=== PATIENT | female | born 1980 | race Hispanic/Latino ===

== ENCOUNTER 2018-04-11 00:04 | Emergency (ER) | payer OTHER ==
[~2018-04-11] VITALS: Ht 152.4 cm; Wt 72.6 kg
[2018-04-11] MEDS ORDERED: DETROL LA4 MG PO (00:19)
[2018-04-11] MEDS ORDERED: DIPHENHYDRAMINE HCL INJ 50 MG/ML VIAL ONE (00:30)
[2018-04-11] MEDS ORDERED: METHYLPREDNISOLONE SOD SUCC 125 MG/2ML VIAL ONE (00:30)
[2018-04-11] MEDS ORDERED: FAMOTIDINE 20 MG/2 ML VIAL IV STA (00:31)
[2018-04-11] MEDS ORDERED: FAMOTIDINE 20 MG/2 ML VIAL IV ONE (00:31)
[2018-04-11] MEDS ORDERED: SODIUM CHLORIDE 0.9% 1000ML 1,000 ML IV STA (00:31)
[2018-04-11] MEDS ORDERED: METHYLPREDNISOLONE SOD SUCC 125 MG/2ML VIAL IV STA (00:31)
[2018-04-11] MEDS ORDERED: DIPHENHYDRAMINE HCL INJ 50 MG/ML VIAL IV ONE (00:45)
[2018-04-11 01:09] LABS: BASOPHILS % 0.3 % (0.0-1.0); EOSINOPHILS # (AUTO) 0.3 (0.0-0.4); HEMATOCRIT 39.7 % (34.2-44.1); HEMOGLOBIN 13.2 g/dL (12.0-16.0); LYMPHOCYTES # (AUTO) 2.8 (1.0-3.2); LYMPHOCYTES % 31.8 % (18.0-39.1); MEAN CORPUSCULAR HEMOGLOBIN 28.4 pg (28-32); MEAN CORPUSCULAR HGB CONC 33.2 g/dL (31-35); MEAN CORPUSCULAR VOLUME 85.4 fL (81-99); MONOCYTES # (AUTO) 0.7 (0.2-0.8); MONOCYTES % 7.9 % (4.4-11.3); NEUTROPHILS % 56.7 % (38.7-80.0); PLATELET COUNT 250 x10e3/uL (140-360); RED BLOOD COUNT 4.65 x10e6/uL (3.6-5.1); RED CELL DISTRIBUTION WIDTH 13.6 % (11.7-14.4)
[2018-04-11 01:33] LABS: ALANINE AMINOTRANSFERASE 28 IU/L (0-55); ALBUMIN 3.5 g/dL (3.5-5.0); ALBUMIN/GLOBULIN RATIO 0.9 (0.8-2.0); ALKALINE PHOSPHATASE 71 IU/L (40-150); ANION GAP 14.7 mmol/L (8-16); BLOOD UREA NITROGEN 11 mg/dL (7-26); BUN/CREATININE RATIO 14 (6-25); CALCIUM 9.1 mg/dL (8.4-10.2); CARBON DIOXIDE 23 mmol/L (22-29); CHLORIDE 105 mmol/L (98-107); EST GLOMERULAR FILTRATION RATE > 60 ML/MIN (60-); GLUCOSE 88 mg/dL (74-118); POTASSIUM 3.7 mmol/L (3.5-5.1); SODIUM 139 mmol/L (136-145)
--- NOTE | 2018-04-11 02:19 | Diagnostic Imaging Report ---
EXAM: CHEST SINGLE (PORTABLE), AP 1 view INDICATION: Allergic reaction COMPARISON: None FINDINGS: LINES/TUBES: None LUNGS: No consolidations or edema. PLEURA: No effusions or pneumothorax. HEART AND MEDIASTINUM: Normal size and contour. BONES AND SOFT TISSUES: No acute findings. IMPRESSION: No acute thoracic abnormality. Signed by: Dr. Yamilex Faustin M.D. on 04/11/2018 2:15 AM
[2018-04-11 03:43] VITALS: BP 108/79
== END 2018-04-11 03:44 | disposition home or self-care (01) ==
LOC: ER 00:04
DX: T78.3XXA Angioneurotic edema, initial encounter (principal)
CPT/HCPCS: 36415; 71045; 80053; 85025; 96374; 96375; 96376; 99284; J1200; J2930; J7030

== ENCOUNTER 2019-03-11 02:15 | Emergency (ER) | payer OTHER ==
[~2019-03-11] VITALS: Ht 152.4 cm; Wt 72.6 kg
[~2019-03-11 02:15] MED LIST: DETROL LA4 MG PO
--- OUTSIDE RECORDS SUMMARY | 2019-03-11 02:17 | XMS REPORT | Clinical Summary ---
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 Phone Asked, No Pcp PCP Unavailable Allergies No Known Allergies Medications No known medications Active Problems Not on file Encounters Care Team Description Date Type Specialty 05/25/2018 Clinical Corporate Wellness Support after 03/10/2018 Immunizations Name Dates Previously Given Next Due FLUCELVAX QUAD PF (0.5mL 05/25/2018 syringe) Social History Date Tobacco Use Types Packs/Day Years Used Never Smoker Alcohol Use Drinks/Week oz/Week Comments No Sex Assigned at Date Recorded Not on file Industry Job Start Date Occupation Not on file Not on file Not on file Travel End Travel History Travel Start No recent travel history available. Last Filed Vital Signs Not on file Plan of Treatment Health Maintenance Due Date Last Done Comments INFLUENZA VACCINE 03/11/2019 05/25/2018, 06/12/2014 Results Not on fileafter 03/10/2018 Insurance Type Payer Benefit Subscriber ID Effective Phone Address Plan / Dates Group HMO/PPO [id number] THCARE resent CHOICE/CHO ICE + Advance Directives Patient has advance care planning documents on file. For more information, agnes reyna contact: Nikolas Tony [address] [place] [address]
--- OUTSIDE RECORDS SUMMARY | 2019-03-11 02:17 | XMS REPORT | Clinical Summary ---
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 03/14/2019 Active doxycycline (VIBRAMYCIN) Take 1 20 capsule 0 100 MG capsule capsule (100 9 mg total) by mouth 2 (two) times daily for 10 days. 03/14/2019 Active acetaminophen-codeine Take 1-2 15 tablet 0 (TYLENOL #3) 300-30 mg tablets by 9 per tablet mouth every 6 (six) hours as needed for Pain for up to 10 days. Max Daily Amount: 8 tablets 03/11/2019 Active ondansetron (ZOFRAN) 4 MG Take 1 tablet 14 tablet 0 tablet (4 mg total) 9 by mouth 3 (three) times daily as needed for Nausea for up to 7 days ODT please. 03/04/2019 Discontinued polyethylene glycol Take 17 g by 0 (GLYCOLAX) 17 gram packet mouth 2 (two) times daily. Active Problems Not on file Encounters Care Team Description Date Type Specialty Madi Hurtado Jr., MD Lower abdominal pain (Primary Dx); Proctitis; Cyst of right ovary 03/04/2019 Emergency Emergency Medicine Resource, [facility] Preadmit Phone 02/25/2019 Hospital Pre-Admission Testing Encounter Laurence Charles MD 1, [facility] Room Abdominal bloating 01/29/2019 Hospital Ultrasound Encounter Laurence Charles MD Abdominal bloating (Primary Dx) 01/27/2019 Outside Orders Central Scheduling Taco Rogers MD 12/18/2018 Anesthesia Event Laurence Charles MD UPPER ENDOSCOPY,BIOPSY 12/18/2018 Surgery Laurence Charles MD 12/18/2018 Hospital Encounter Resource, [facility] Preadmit Phone 12/17/2018 Hospital Pre-Admission Testing Encounter after 03/10/2018 Social History Date Tobacco Use Types Packs/Day Years Used Never Smoker Smokeless Tobacco: Never Used Alcohol Use Drinks/Week oz/Week Comments Yes occasionally Sex Assigned at Date Recorded Not on file Industry Job Start Date Occupation Not on file Not on file Not on file Travel End Travel History Travel Start No recent travel history available. Last Filed Vital Signs Time Taken Vital Sign Reading 03/04/2019 1:33 PM CDT Blood Pressure 109/79 03/04/2019 1:33 PM CDT Pulse 73 03/04/2019 1:33 PM CDT Temperature 37.1 C (98.8 F) 03/04/2019 1:33 PM CDT Respiratory Rate 18 03/04/2019 1:28 PM CDT Oxygen Saturation 99% - Inhaled Oxygen - Concentration 03/04/2019 4:53 AM CDT Weight 75.3 kg (166 lb) 03/04/2019 4:53 AM CDT Height 157.5 cm (5' 2") 03/04/2019 4:53 AM CDT Body Mass Index 30.36 Plan of Treatment Not on file Procedures Comments Procedure Name Priority Date/Time Associated Diagnosis US PELVIS WITH ENDOVAG STAT 03/04/2019 WITH DOPPLER 10:[address] ABDOMEN/PELVIS WITH IV STAT 03/04/2019 CONTRAST 6:39 AM CDT POCT , URINE STAT 03/04/2019 5:20 AM CDT CBC W/PLT COUNT & AUTO STAT 03/04/2019 DIFFERENTIAL 5:13 AM CDT LIPASE STAT 03/04/2019 5:13 AM CDT HEPATIC FUNCTION PANEL STAT 03/04/2019 5:13 AM CDT URINALYSIS WITH STAT 03/04/2019 MICROSCOPIC IF INDICATED 5:13 AM CDT CBC W/PLT COUNT & AUTO STAT 03/04/2019 DIFFERENTIAL 5:13 AM CDT BASIC METABOLIC PANEL (7) STAT 03/04/2019 5:13 AM CDT US ABDOMEN COMPLETE Routine 01/29/2019 Abdominal bloating 9:00 AM CDT REPORT OF PROCEDURE - 12/18/2018 ENDOSCOPY URL 9:04 AM CDT TISSUE EXAM AP Routine 12/18/2018 8:56 AM CDT UPPER ENDOSCOPY,BIOPSY 12/18/2018 Gastritis, presence of 8:30 AM CDT bleeding unspecified, unspecified chronicity, unspecified gastritis type POCT , URINE Routine 12/18/2018 8:29 AM CDT after 03/10/2018 Results * US pelvis with endovag with doppler (03/04/2019 10:24 AM CDT) Specimen Narrative Performed At FINAL REPORT [employer] Pelvic ultrasound History: pelvic pain Comparison: CT abdomen and pelvis of same date Findings: Sonographic images obtained via a transabdominal and transvaginal approach.No apparent uterine mass lesion or enlargement.Uterus measures 10.1 x 5.1 x 6.8cm. Several incidental nabothian cysts are noted. Normal appearance of endometrial stripe.Endometrial stripe measures 6.9mm.No free fluid is seen. A 4.1 cm well-circumscribed simple appearing right ovarian cyst is noted. Expected arterial and venous waveforms are seen within the right ovary. Left ovary is not identified on this examination. However, the left ovary appears normal on the comparison CT study.No hydrosalpinx.Right ovary measures 4.4 x 3.5 x 4.1cm. Impression: 1. No definite sonographic findings of ovarian torsion. 2. 4.1 cm well-circumscribed right ovarian cyst, requiring no further imaging follow-up. Signed: Natalee Velez MD Report Verified Date/Time:03/04/2019 13:00:47 Reading Location: [facility] Diagnostic Imaging Reading Room - [place] [address] [id number] Procedure Note Interface, External Ris In - 03/04/2019 1:02 PM CDT FINAL REPORT Pelvic ultrasound History: pelvic pain Comparison: CT abdomen and pelvis of same date Findings: Sonographic images obtained via a transabdominal and transvaginal approach. No apparent uterine mass lesion or enlargement. Uterus measures 10.1 x 5.1 x 6.8cm. Several incidental nabothian cysts are noted. Normal appearance of endometrial stripe. Endometrial stripe measures 6.9mm. No free fluid is seen. A 4.1 cm well-circumscribed simple appearing right ovarian cyst is noted. Expected arterial and venous waveforms are seen within the right ovary. Left ovary is not identified on this examination. However, the left ovary appears normal on the comparison CT study. No hydrosalpinx. Right ovary measures 4.4 x 3.5 x 4.1cm. Impression: 1. No definite sonographic findings of ovarian torsion. 2. 4.1 cm well-circumscribed right ovarian cyst, requiring no further imaging follow-up. Signed: Natalee Velez MD Report Verified Date/Time: 03/04/2019 13:00:47 Reading Location: [facility] Diagnostic Imaging Reading Room - [place] [id number] Performing Organization Address City/State/Zipcode Phone Number [facility] * CT abdomen pelvis with IV contrast (03/04/2019 6:39 AM CDT) Specimen Narrative Performed At FINAL REPORT [employer] EXAM: CT of the abdomen and pelvis, with contrast CLINICAL HISTORY: Abdominal pain. TECHNIQUE: CT of the abdomen and pelvis was performed with intravenous contrast administration.This exam was performed according to our departmental dose optimization program which includes automated exposure control, adjustment of the mA and/or kV according to patient's size and/or use of iterative reconstructive technique. COMPARISON:None FINDINGS: LOWER CHEST: Mild bibasilar dependent atelectasis. LIVER: Diffuse hepatic steatosis. BILE DUCTS: Within normal limits. GALL BLADDER: Tiny punctate mural calcifications and/or intraluminal gallstones. No wall thickening or pericholecystic fluid. PANCREAS: Within normal limits. SPLEEN: Multiple small hypodensities of varying sizes. ADRENALS: Within normal limits. KIDNEYS/URETERS: Within normal limits. URINARY BLADDER: Within normal limits. REPRODUCTIVE ORGANS: Enlarged right ovary containing a 4.5 x 4.1 x 4.0 cyst measuring simple fluid attenuation. Unremarkable uterus and left adnexa. BOWEL/MESENTERY: Diffuse mural thickening of the rectum for which a proctitis (infectious/inflammatory) cannot be excluded. No bowel obstruction. Normal appendix. PERITONEUM/RETROPERITONEUM: No free air, free fluid or fluid collection. VESSELS: Within normal limits. LYMPH NODES: No abdominal or pelvic lymphadenopathy. SOFT TISSUES: Small fat-containing umbilical hernia. BONES: Within normal limits. IMPRESSION: Enlarged right ovary containing a 4.5 cm cyst. Correlate clinically for ovarian torsion. A pelvic ultrasound may be performed for further evaluation as clinically warranted. Diffuse mural thickening of the rectum for which a proctitis (infectious/inflammatory) cannot be excluded. No bowel obstruction. Tiny punctate mural calcifications and/or intraluminal gallstones. No CT evidence of acute cholecystitis. Multiple hypodense splenic lesions of varying sizes of uncertain etiology or significance. Multiple cysts are a diagnostic consideration however a nonemergent MRI is recommended for further characterization. Hepatic steatosis. Signed: Radha Michele MD Report Verified Date/Time:03/04/2019 07:22:15 Procedure Note Interface, External Ris In - 03/04/2019 7:24 AM CDT FINAL REPORT EXAM: CT of the abdomen and pelvis, with contrast CLINICAL HISTORY: Abdominal pain. TECHNIQUE: CT of the abdomen and pelvis was performed with intravenous contrast administration. This exam was performed according to our departmental dose optimization program which includes automated exposure control, adjustment of the mA and/or kV according to patient's size and/or use of iterative reconstructive technique. COMPARISON: None FINDINGS: LOWER CHEST: Mild bibasilar dependent atelectasis. LIVER: Diffuse hepatic steatosis. BILE DUCTS: Within normal limits. GALL BLADDER: Tiny punctate mural calcifications and/or intraluminal gallstones. No wall thickening or pericholecystic fluid. PANCREAS: Within normal limits. SPLEEN: Multiple small hypodensities of varying sizes. ADRENALS: Within normal limits. KIDNEYS/URETERS: Within normal limits. URINARY BLADDER: Within normal limits. REPRODUCTIVE ORGANS: Enlarged right ovary containing a 4.5 x 4.1 x 4.0 cyst measuring simple fluid attenuation. Unremarkable uterus and left adnexa. BOWEL/MESENTERY: Diffuse mural thickening of the rectum for which a proctitis (infectious/inflammatory) cannot be excluded. No bowel obstruction. Normal appendix. PERITONEUM/RETROPERITONEUM: No free air, free fluid or fluid collection. VESSELS: Within normal limits. LYMPH NODES: No abdominal or pelvic lymphadenopathy. SOFT TISSUES: Small fat-containing umbilical hernia. BONES: Within normal limits. IMPRESSION: Enlarged right ovary containing a 4.5 cm cyst. Correlate clinically for ovarian torsion. A pelvic ultrasound may be performed for further evaluation as clinically warranted. Diffuse mural thickening of the rectum for which a proctitis (infectious/inflammatory) cannot be excluded. No bowel obstruction. Tiny punctate mural calcifications and/or intraluminal gallstones. No CT evidence of acute cholecystitis. Multiple hypodense splenic lesions of varying sizes of uncertain etiology or significance. Multiple cysts are a diagnostic consideration however a nonemergent MRI is recommended for further characterization. Hepatic steatosis. Signed: Radha Michele MD Report Verified Date/Time: 03/04/2019 07:22:15 Performing Organization Address City/State/Zipcode Phone Number [facility] * POCT , urine (03/04/2019 5:20 AM CDT) Only the most recent of 2 results within the time period is included. Test Urine, POC Negative Control line present?, Yes POC Background clear?, POC Yes UPT Cassette Lot #, POC [id number] UPT Cassette Expiration 04/10/2020 Date, POC Specimen Urine * Urinalysis with Microscopic If Indicated (03/04/2019 5:13 AM CDT) Color, UA Colorless [facility] Clarity, UA Clear [facility] Specific [place], UA 1.002 1.001 - 1.035 [facility] pH, UA 5.5 5.0 - 8.0 [facility] Protein, UA Negative Negative [facility] Glucose, UA Negative Negative [facility] Ketones, UA Negative Negative [facility] Bilirubin, UA Negative Negative [facility] Blood, UA Negative Negative [facility] Nitrite, UA Negative Negative [facility] Leukocytes, UA Negative Negative [facility] Urobilinogen, UA 0.2 0.2 - 1.0 mg/dL [facility] Specimen Source [facility] Specimen Urine Performing Organization Address City/State/Zipcode Phone Number [facility] [address] [place] [address] MEDICAL CENTER * CBC with platelet count + automated diff (03/04/2019 5:13 AM CDT) WBC 10.0 3.5 - 10.5 K/L [facility] RBC 4.30 3.93 - 5.22 M/L [facility] Hemoglobin 11.9 11.2 - 15.7 GM/DL [facility] Hematocrit 37.2 34.1 - 44.9 % [facility] MCV 86.5 79.4 - 94.[address] [facility] MCH 27.7 25.6 - 32.[address] [facility] MCHC 32.0 (L) 32.2 - 35.5 GM/DL [facility] RDW 13.5 11.7 - 14.4 % [facility] Platelets 242 150 - 450 K/CU MM [facility] MPV 10.8 9.4 - 12.[address] [facility] nRBC 0 0 - 0 /[address] [facility] % Neutros 58 % [facility] % Lymphs 31 % [facility] % Monos 8 % [facility] % Eos 2 % [facility] % Baso 0 % [facility] # Neutros 5.78 1.56 - 6.13 K/L [facility] # Lymphs 3.13 1.18 - 3.74 K/L [facility] # Monos 0.78 (H) 0.24 - 0.36 K/L [facility] # Eos 0.21 0.04 - 0.36 K/L [facility] # Baso 0.03 0.01 - 0.08 K/L [facility] Immature 0 0 - 1 % [facility] Granulocytes-[facility] Specimen Blood Performing Organization Address City/State/Zipcode Phone Number [address] * Lipase (03/04/2019 5:13 AM CDT) Lipase 40 8 - 78 U/L [facility] Specimen Blood Performing Organization Address City/[facility]/Zipcode Phone Number [address] * Hepatic function panel (03/04/2019 5:13 AM CDT) Protein, Total 7.4 6.0 - 8.3 gm/dL [facility] Albumin 4.0 3.5 - 5.0 g/dL [facility] Total Bilirubin 0.3 0.2 - 1.2 mg/dL [facility] Bilirubin, Direct 0.1 0.1 - 0.5 mg/dL [facility] Alkaline Phosphatase 73 40 - 150 U/L [facility] AST 24 5 - 34 U/L [facility] ALT 27 6 - 55 U/L [facility] Specimen Blood Performing Organization Address City/State/Zipcode Phone Number [facility] [address] [place], [place] [id number] [facility] * Basic Metabolic Panel (03/04/2019 5:13 AM CDT) Sodium 138 136 - 145 meq/L [facility] Potassium 3.7 3.5 - 5.1 meq/L [facility] Chloride 108 (H) 98 - 107 meq/L [facility] CO2 24 22 - 29 meq/L [facility] BUN 8 7 - 21 mg/dL [facility] Creatinine 0.70 0.57 - 1.25 mg/dL [facility] Glucose 91 70 - 105 mg/dL [facility] Calcium 9.1 8.4 - 10.2 mg/dL [facility] EGFR 94Comment: ESTIMATED GFR IS mL/min/1.73 sq m [facility] NOT ACCURATE CREATININE [facility] CLEARANCE IN PREDICTING GLOMERULAR FILTRATION RATE. ESTIMATED GFR IS NOT APPLICABLE FOR DIALYSIS PATIENTS. Specimen Blood Performing Organization Address City/[facility]/Zipcode Phone Number [facility] [address] [place], [place] [phone] [facility] * US Abdomen Complete (01/29/2019 9:00 AM CDT) Specimen Narrative Performed At FINAL REPORT [employer] EXAM: Complete Abdominal Ultrasound INDICATION:abdominal bloating COMPARISON: None. TECHNIQUE: Transverse and longitudinal images of the upper abdomen were obtained. FINDINGS: Liver: Size: 14.7 cm in the right midclavicular line, normal Appearance: Increased echogenicity, smooth contour Mass: No focal masses Spleen: Size: 12.1 cm in length, normal Echogenicity: Normal Mass: No solid masses. Simple cyst. Gallbladder: Stones/Sludge: Mobile gallstone Wall: 0.3 cm Appearance: No pericholecystic fluid or hydrops. Sonographic Contreras's Sign: Negative Bile Ducts: Intrahepatic Ducts: No dilatation Extrahepatic Ducts: Common bile duct measures 0.5 cm, no dilatation Pancreas: Visualized portions of the pancreatic head, neck and proximal body are normal. Right Kidney: Size:11.4 cm Echogenicity:Normal Parenchymal thickness: Normal Collecting System:No hydronephrosis Stone:None Cyst/Mass: None Left Kidney: Size:10.6 cm Echogenicity:Normal Parenchymal thickness: Normal Collecting System:No hydronephrosis Stone:None Cyst/Mass: None Vessels: Aorta: Visualized portions are normal Inferior Vena Cava: Visualized portions are normal Main Portal Vein: 1.1 cm, normal size with hepatopetal flow. Free Fluid: No ascites or pleural effusion IMPRESSION: Cholelithiasis without cholecystitis. Increased hepatic echogenicity can be seen in hepatic steatosis or other chronic inflammatory condition. Signed: Dereje Retana MD Report Verified Date/Time:01/29/2019 09:42:56 Reading Location: [facility] Reading Room [address] [place] [address] Procedure Note Interface, External Ris In - 01/29/2019 9:45 AM CDT FINAL REPORT EXAM: Complete Abdominal Ultrasound INDICATION: abdominal bloating COMPARISON: None. TECHNIQUE: Transverse and longitudinal images of the upper abdomen were obtained. FINDINGS: Liver: Size: 14.7 cm in the right midclavicular line, normal Appearance: Increased echogenicity, smooth contour Mass: No focal masses Spleen: Size: 12.1 cm in length, normal Echogenicity: Normal Mass: No solid masses. Simple cyst. Gallbladder: Stones/Sludge: Mobile gallstone Wall: 0.3 cm Appearance: No pericholecystic fluid or hydrops. Sonographic Contreras's Sign: Negative Bile Ducts: Intrahepatic Ducts: No dilatation Extrahepatic Ducts: Common bile duct measures 0.5 cm, no dilatation Pancreas: Visualized portions of the pancreatic head, neck and proximal body are normal. Right Kidney: Size: 11.4 cm Echogenicity: Normal Parenchymal thickness: Normal Collecting System: No hydronephrosis Stone: None Cyst/Mass: None Left Kidney: Size: 10.6 cm Echogenicity: Normal Parenchymal thickness: Normal Collecting System: No hydronephrosis Stone: None Cyst/Mass: None Vessels: Aorta: Visualized portions are normal Inferior Vena Cava: Visualized portions are normal Main Portal Vein: 1.1 cm, normal size with hepatopetal flow. Free Fluid: No ascites or pleural effusion IMPRESSION: Cholelithiasis without cholecystitis. Increased hepatic echogenicity can be seen in hepatic steatosis or other chronic inflammatory condition. Signed: Dereje Retana MD Report Verified Date/Time: 01/29/2019 09:42:56 Reading Location: [facility] Reading Room [address] [place] [address] Performing Organization Address City/State/Zipcode Phone Number [facility] * REPORT OF PROCEDURE - ENDOSCOPY URL (12/18/2018 9:04 AM CDT) Narrative Performed At * Tissue Exam (12/18/2018 8:56 AM CDT) Case Report Surgical Pathology [facility] Report [facility] Case: [id number] Authorizing Provider:Laurence Charles MDCollected: 12/18/2018 0856 Ordering Location: [facility] Received: 12/18/2018 1102 SERVICES Pathologist: Lolis Rivers MD Specimen:Stomach, bx r/o H Pyroi DIAGNOSIS STOMACH, BIOPSY: [facility] - CHRONIC INACTIVE [facility] GASTRITIS LC/pl Signing Pathologist Direct Phone Line: [phone] COMMENT The endoscopy report is [facility] reviewed in conjunction with [facility] the case. CPT Code(s) 14380 [facility] [address] [facility] GROSS DESCRIPTION The specimen is received in a [facility] single part labeled with the [facility] patient's name, date of and accession which match the information provided on the requisition slip. Part A: Received in formalin in a container labeled "stomach biopsy, rule out H. Pylori" are three pieces of riojas-pink tissue measuring 0.4 x 0.3 x 0.2 cm, 0.2 x 0.2 x 0.2 cm, 0.2 x 0.2 x 0.2 cm. They are submitted entirely in cassette A1 following filtration. EC/pl MICROSCOPIC DESCRIPTION Sections of the stomach biopsy [facility] show gastric antral and [facility] oxyntic type mucosa. There is increased chronic inflammation in the lamina propria with lymphocytes, plasma cells and few lymphoid aggregates. Mild vascular congestion is present. There is no significant acute inflammation. There is no intestinal metaplasia, dysplasia or malignancy. Warthin-starry stains for Helicobacter pylori is negative. SPECIAL STUDIES Warthin-starry stain - [facility] negative for Helicobacter [facility] pylori. The interpretation of this case included the use of immunohistochemistry or special stains. Control Slides Examined: In-house known positive controls were evaluated along with the test tissue. These control slides run alongside of the patients sample show appropriate staining. Internal positive and negative controls when available are evaluated Immunohistochemistry technical testing was performed at [facility], Pathology Laboratory where it was developed and its performance characteristics were determined. It has not been cleared or approved by the U.S. Food and Drug Administration. The FDA has determined that such clearance or approval is not necessary. The test is used for clinical purposes. It should not be regarded as investigational or for research. This laboratory is certified under the Clinical Laboratory Improvement Amendments of 1988 (CLIA-88) as qualified to perform high complexity clinical laboratory testing. Specimen Tissue Performing Organization Address City/State/Zipcode Phone Number [facility] [address] [place] [address] [facility] after 03/10/2018 Insurance Payer Benefit Subscriber ID Type Phone Address Plan / Group [facility] HMO/POS CARE POS SELECT CHOICE
--- OUTSIDE RECORDS SUMMARY | 2019-03-11 02:17 | XMS REPORT ---
Author Author [facility] Address Unknown Phone Unavailable Care Team Providers Care Apartment Maintenance Supervisor Name Role Phone FEROZHERBERTH Unavailable Unavailable GUNNAR CHARLESGH LLUVIA Unavailable Unavailable Miguel STEPHENSONIRINA Unavailable Unavailable Problems This patient has no known problems. Allergies, Adverse Reactions, Alerts This patient has no known allergies or adverse reactions. Medications This patient has no known medications. Results Test Description Test Time Test Comments Text Results Atomic Results Result Comments U/S, PELVIS, WITH ENDOVAG AND DOPPLER 2019-03-04 13:00:00 Reason for exam:->ABDOMINAL PAIN FINAL REPORT Pelvic ultrasound History: pelvic pain Comparison: CT abdomen and pelvis of same date Findings: Sonographic images obtained via a transabdominal and transvaginal approach. No apparent uterine mass lesion or enlargement. Uterus measures 10.1 x 5.1 x 6.8cm. Several incidental nabothian cysts are noted. Normal appearance of endometrial stripe. Endometrial stripe measures 6.9mm. No free fluid is seen. A 4.1 cm well- circumscribed simple appearing right ovarian cyst is noted. Expected arterial and venous waveforms are seen within the right ovary. Left ovary is not i dentified on this examination. However, the left ovary appears normal on the comparison CT study. No hydrosalpinx. Right ovary measures 4.4 x 3.5 x 4.1cm. Impression: 1. No definite sonographic findings of ovarian torsion.2. 4.1 cm well-circumscribed right ovarian cyst, requiring no further imaging follow-up. Signed: Junior Velez MDReport Verified Date/Time: 03/04/2019 13:00:47 Reading Location: [facility] Diagnostic Imaging Reading Room - [place] [id number] , ABDOMEN 2019-03-04 07:22:00 Reason for exam:->ABDOMINAL PAINIs the patient ?->NoWhat is the patient's sedation requirement?->No Sedation FINAL REPORT EXAM: CT of the abdomen and pelvis, with contrast CLINICAL HISTORY: Abdominal pain. TECHNIQUE: CT of the abdomen and pelvis was performed with intravenous contrast administration. This exam was performed according to our departmental dose optimization program which includes automated exposure control, adjustment of the mA and/or kV according to patient's size and /or use of iterative reconstructive technique. COMPARISON: None FINDINGS: LOWER CHEST: Mild bibasilar dependent atelectasis.LIVER: Diffuse hepatic steatosis.BILE DUCTS: Within normal limits.GALL BLADDER: Tiny punctate mural calcifications and/or intraluminal gallstones. No wall thickening or pericholecystic fluid.PANCREAS: Within normal limits.SPLEEN: Multiple small hypodensities of varying sizes.ADRENALS: Within normal limits.KIDNEYS/URETERS: Within normal limits. URINARY BLADDER: Within normal limits.REPRODUCTIVE ORGANS: Enlarged right ovary containing a 4.5 x 4.1 x 4.0 cyst measuring simple fluid attenuation. Unremarkable uterus and left adnexa. BOWEL/MESENTERY: Diffuse mural thickening of the rectum for which a proctitis (infectious/inflammatory) cannot be excluded. No bowel obstruction.Normal appendix.PERITONEUM/RETROPERITONEUM: No free air, free fluid or fluid collection. VESSELS: Within normal limits. LYMPH NODES: No abdominal or pelvic lymphadenopathy.SOFT TISSUES: Small fat-containing umbilical hernia.BONES: Within normal limits. IMPRESSION: Enlarged right ovary [...] recommended for further characterization. Hepatic steatosis. Signed: Ana Michele MDRort Verified Date/Time: 03/04/2019 07:22:15 TIC FUNCTION PANEL 2019-03-04 06:56:00 TOTAL PROTEIN (BEAKER) (test rmam=631) 7.4 gm/dL 6.0-8.3 ALBUMIN (BEAKER) (test kybi=5261) 4.0 g/dL 3.5-5.0 BILIRUBIN TOTAL (BEAKER) (test miiw=593) 0.3 mg/dL 0.2-1.2 BILIRUBIN DIRECT (BEAKER) (test vfyi=397) 0.1 mg/dL 0.1-0.5 ALKALINE PHOSPHATASE (BEAKER) (test cssg=403) 73 U/L 40-150 AST (SGOT) (BEAKER) (test pzct=744) 24 U/L 5-34 ALT (SGPT) (BEAKER) (test pqyg=520) 27 U/L 6-55 [id number] 06:56:00* Test Item Value Reference Range Comments LIPASE (BEAKER) (test bhic=592) 40 U/L 8-78 URINALYSIS WITH MICROSCOPIC IF [id number] 06:21:00* Test Item Value Reference Range Comments COLOR (BEAKER) (test kcaa=726) Colorless CLARITY (BEAKER) (test aelo=390) Clear SPECIFIC GRAVITY UA (BEAKER) (test advo=801) 1.002 1.001-1.035 PH UA (BEAKER) (test bqvb=743) 5.5 5.0-8.0 PROTEIN UA (BEAKER) (test avrt=673) Negative Negative GLUCOSE UA (BEAKER) (test clrm=186) Negative Negative KETONES UA (BEAKER) (test mqhh=225) Negative Negative BILIRUBIN UA (BEAKER) (test sfjn=761) Negative Negative BLOOD UA (BEAKER) (test qsiz=730) Negative Negative NITRITE UA (BEAKER) (test yqdo=768) Negative Negative LEUKOCYTE ESTERASE UA (BEAKER) (test qwzj=030) Negative Negative UROBILINOGEN UA (BEAKER) (test ybkp=286) 0.2 mg/dL 0.2-1.0 SOURCE(BEAKER) (test rxai=2477) BASIC METABOLIC [id number] 06:11:00* Test Item Value Reference Range Comments SODIUM (BEAKER) (test ymqh=886) 138 meq/L 136-145 POTASSIUM (BEAKER) (test xpki=821) 3.7 meq/L 3.5-5.1 CHLORIDE (BEAKER) (test nbbg=119) 108 meq/L 98-107 CO2 (BEAKER) (test qjpe=988) 24 meq/L 22-29 BLOOD UREA NITROGEN (BEAKER) (test gnue=336) 8 mg/dL 7-21 CREATININE (BEAKER) (test xqyi=859) 0.70 mg/dL 0.57-1.25 GLUCOSE RANDOM (BEAKER) (test rbul=909) 91 mg/dL 70-105 CALCIUM (BEAKER) (test yzbt=241) 9.1 mg/dL 8.4-10.2 EGFR (BEAKER) (test irms=2030) 94 mL/min/1.73 sq m ESTIMATED GFR IS NOT ACCURATE CREATININE CLEARANCE IN PREDICTING GLOMERULAR FILTRATION RATE. ESTIMATED GFR IS NOT APPLICABLE FOR DIALYSIS PATIENTS. CBC W/PLT COUNT & AUTO [id number] 05:32:00* Test Item Value Reference Range Comments WHITE BLOOD CELL COUNT (BEAKER) (test adcp=175) 10.0 K/ L 3.5-10.5 RED BLOOD CELL COUNT (BEAKER) (test zfjo=138) 4.30 M/ L 3.93-5.22 HEMOGLOBIN (BEAKER) (test xpgj=097) 11.9 GM/DL 11.2-15.7 HEMATOCRIT (BEAKER) (test gpyy=210) 37.2 % 34.1-44.9 MEAN CORPUSCULAR VOLUME (BEAKER) (test lwxe=945) 86.5 fL 79.4-94.8 MEAN CORPUSCULAR HEMOGLOBIN (BEAKER) (test wqoi=307) 27.7 pg 25.6-32.2 MEAN CORPUSCULAR HEMOGLOBIN CONC (BEAKER) (test wywk=220) 32.0 GM/DL 32.2-35.5 RED CELL DISTRIBUTION WIDTH (BEAKER) (test lezz=730) 13.5 % 11.7-14.4 PLATELET COUNT (BEAKER) (test zgbz=157) 242 K/CU MM 150-450 MEAN PLATELET VOLUME (BEAKER) (test sqxw=882) 10.8 fL 9.4-12.3 NUCLEATED RED BLOOD CELLS (BEAKER) (test lgek=695) 0 /100 WBC 0-0 NEUTROPHILS RELATIVE PERCENT (BEAKER) (test eoep=488) 58 % LYMPHOCYTES RELATIVE PERCENT (BEAKER) (test hzpy=211) 31 % MONOCYTES RELATIVE PERCENT (BEAKER) (test qeeb=460) 8 % EOSINOPHILS RELATIVE PERCENT (BEAKER) (test tkqx=799) 2 % BASOPHILS RELATIVE PERCENT (BEAKER) (test tjqs=089) 0 % NEUTROPHILS ABSOLUTE COUNT (BEAKER) (test kana=638) 5.78 K/ L 1.56-6.13 LYMPHOCYTES ABSOLUTE COUNT (BEAKER) (test fyya=467) 3.13 K/ L 1.18-3.74 MONOCYTES ABSOLUTE COUNT (BEAKER) (test gxwc=482) 0.78 K/ L 0.24-0.36 EOSINOPHILS ABSOLUTE COUNT (BEAKER) (test ltct=327) 0.21 K/ L 0.04-0.36 BASOPHILS ABSOLUTE COUNT (BEAKER) (test xwrk=774) 0.03 K/ L 0.01-0.08 IMMATURE GRANULOCYTES-RELATIVE PERCENT (BEAKER) (test ykik=1384) 0 % 0-1 US, ABDOMINAL, [id number] 09:42:00Reason for Exam:->abdominal bloating FINAL REPORT EXAM: Complete Abdominal UltrasoundINDICATIO N: abdominal bloatingCOMPARISON: None. TECHNIQUE: Transverse and longitud inal images of the upper abdomen were obtained. FINDINGS: Liver: Size: 14.7 cm in the right midclavicular line, normal Appearance: Increased echoge nicity, smooth contour Mass: No focal masses Spleen: Size: 12.1 cm in l ength, normal Echogenicity: Normal Mass: No solid masses. Simple cyst. Gallbladder: Stones/Sludge: Mobile gallstone Wall: 0.3 cm Appearanc e: No pericholecystic fluid or hydrops. Sonographic Contreras's Sign: Negativ e Bile Ducts: Intrahepatic Ducts: No dilatation Extrahepatic Ducts: Comm on bile duct measures 0.5 cm, no dilatation Pancreas: Visualized portions of the pancreatic head, neck and proximal body are normal. Right Kidney: Size: 11.4 cm Echogenicity: Normal Parenchymal thickness: Normal Colle cting System: No hydronephrosis Stone: None Cyst/Mass: None Left Kidney: Size: 10.6 cm Echogenicity: Normal Parenchymal th ickness: Normal Collecting System: No hydronephrosis Stone: None Cyst/Mass: None Vessels: Aorta: Visualized portions are normal Inferior Vena Cava: Visualized portions are normal Main Portal Vein: 1.1 cm, normal s ize with hepatopetal flow. Free Fluid: No ascites or pleural effusion IMPRES JURGEN:Cholelithiasis without cholecystitis. Increased hepatic echogenicity can be seen in hepatic steatosis or other chronic inflammatory condition. Signed: Dereje Carpio MDReport Verified Date/Time: 01/29/2019 09:42:56 Reading Location: [facility] Reading Room [address] [place] [address] UE [id number] 14:20:00Surgical Pathology Report Case: [id number] Authorizing Provider: Lluvia Charles MD Collected: 12/18/2018 0856 Ordering Location: [facility] Received: 12/18/2018 1102 SERVICES Pathologist: Lolis Rivers MD Specimen: Stomach, bx r/o H Pyroi STOMACH, BIOPSY: - CHRONIC INACTIVE GASTRITISLC/pl Signing Pathologist Direct Phone Line: [phone] signed by Lolis Rivers MD on 12/21/2018 at 2:20 PMThe endoscopy report is reviewed in co njunction with the case. [id number] specimen is received in a single part lab eled with the patient's name, date of and accession which match the inform ation provided on the requisition slip. Part A: Received in formalin in a contai ner labeled "stomach biopsy, rule out H. Pylori" are three pieces of riojas-pink ti ssue measuring 0.4 x 0.3 x 0.2 cm, 0.2 x 0.2 x 0.2 cm, 0.2 x 0.2 x 0.2 cm. They are submitted entirely in cassette A1 following filtration. EC/pl Sections of t he stomach biopsy show gastric antral and oxyntic type mucosa. There is increase d chronic inflammation in the lamina propria with lymphocytes, plasma cells and few lymphoid aggregates. Mild vascular congestion is present. There is no signif icant acute inflammation. There is no intestinal metaplasia, dysplasia or malign gabriel. Warthin-starry stains for Helicobacter pylori is negative. Warthin-starry stain - negative for Helicobacter pylori. The interpretation of this case includ ed the use of immunohistochemistry or special stains.Control Slides Examined: I n-house known positive controls were evaluated along with the test tissue. Thes e control slides run alongside of the patients sample show appropriate staining. Internal positive and negative controls when available are evaluated Immunohist ochemistry technical testing was performed at [facility], Pathology Laboratory where it was developed and its performance characteristics were determined. It has not been cleared or approved by the U.S. Food and Drug A dministration. The FDA has determined that such clearance or approval is not nec essary. The test is used for clinical purposes. It should not be regarded as inv estigational or for research. This laboratory is certified under the Clinical La boratory Improvement Amendments of 1988 (CLIA-88) as qualified to perform high c omplexity clinical laboratory testing.CHEST SINGLE (PORTABLE)2018-04-11 02:15:00 [place] [address] Patient Name: SAVANNAH SHAH MR #: [id number] : 1980 Age/Sex: 37/F Req #: [id number] Adm Physician: Ordered by: LYNNE STEPHENSON MD Report #: [id number] Location: ER Room/Bed: Procedure: [id number] DX/CHEST SINGLE (PORTABLE) Ex am Date: 04/11/18 Exam Time: 0135 REPORT STATUS : Signed EXAM: CHEST SINGLE (PORTABLE), AP 1 view INDICATION: Allergic reac tion COMPARISON: None FINDINGS: LINES/TUBES: None LUNGS: No consol idations or edema. PLEURA: No effusions or pneumothorax. HEART AND ME DIASTINUM: Normal size and contour. BONES AND SOFT TISSUES: No acute findin gs. IMPRESSION: No acute thoracic abnormality. Signed by: Dr. Edgard Lincoln M.D. on 04/11/2018 2:15 AM Dictated By: EDGARD LINCOLN MD 4 Transcribed By: LOR on 04/11/18214 COPY TO: LYNNE STEPHENSON MD
[2019-03-11] MEDS ORDERED: SODIUM CHLORIDE 0.9% 1000ML 1,000 ML IV STA (02:28)
[2019-03-11] MEDS ORDERED: FAMOTIDINE 20 MG/2 ML VIAL IV ONE (02:30)
[2019-03-11] MEDS ORDERED: DONNATAL/LIDOCAINE/MAALOX 30 ML SUSP PO ONE (02:30)
[2019-03-11] MEDS ORDERED: PROMETHAZINE 25MG/ NS 50ML (IV) IV ONE (02:30)
[2019-03-11] MEDS ORDERED: MAGNESIUM/ALUMINUM/SIMETHICONE 30 ML UDC ONE (02:42)
[2019-03-11] MEDS ORDERED: BELLADONNA ALK/PHENOBARBITAL 5 ML UDC ONE (02:42)
[2019-03-11] MEDS ORDERED: LIDOCAINE VISC 2% SOLN 15 ML UDC ONE (02:42)
--- NOTE | 2019-03-11 02:55 | NUR ---
PT TO WINDOW, REQUEST TO DISCONTINUE TREATMENT AND GO HOME. PT STATES THAT "I FEEL LIKE THIS IS THE SAME PAIN CHERYL BEEN HAVING AND THAT YOU'RE NOT GOING TO FIND ANYTHING NEW." PT TAKEN TO TRIAGE, ER MD TO TRIAGE TO SPEAK WITH PATIENT. MD DISCUSSED DIET CHANGES. PT INSTRUCTED TO RETURN TO ER IF SYMPTOMS PERSIST OR CONDITION WORSENS. ORDERS FOR LABS AND MEDS CANCELLED. DISCHARGED PT C RX FOR PHENERGEN.
[2019-04-09] MEDS ORDERED: BIRTH CONTROL PILLS PO (08:54)
[2019-04-09] MEDS ORDERED: PEPCID20 MG PO (08:54)
== END 2019-03-11 03:00 | disposition home or self-care (01) ==
LOC: ER 02:15
DX: R10.84 Generalized abdominal pain (principal); K58.1 Irritable bowel syndrome with constipation
CPT/HCPCS: 99283; J2550; J7030

== ENCOUNTER → 2019-04-10 | Day surgery (SDC) | payer OTHER ==
[~2019-04-10] MED LIST changes: +BIRTH CONTROL PILLS PO; +FENTANYL CITRATE/PF 100MCG/2 ML INJ ONE; +HYOSCYAMINE 0.125 MG TAB ONE; +KETAMINE HCL INJ 50 MG/ML 10 ML VIAL ONE; +MIDAZOLAM HCL 2 MG/2 ML VIAL ONE; +PANTOPRAZOLE SOD 40 MG TABEC ONE; +PEPCID20 MG PO; +PROPOFOL IV EMULSION 10 MG/ML 50 ML VIAL ONE
--- OUTSIDE RECORDS SUMMARY | 2019-04-10 14:20 | XMS REPORT | Clinical Summary ---
Author Author [facility] Address Unknown Phone Unavailable Care Team Providers Care Air Support Control Officer Name Role Phone Asked, No Pcp PCP Unavailable Allergies No Known Allergies Medications No known medications Active Problems Not on file Encounters Care Team Description Date Type Specialty 05/25/2018 Clinical Corporate Wellness Support after 04/09/2018 Immunizations Name Administration Dates Next Due FLUCELVAX QUAD PF 05/25/2018 Social History Date Tobacco Use Types Packs/Day Years Used Never Smoker Drinks/Week oz/Week Comments Alcohol Use No Sex Assigned at Date Recorded Not on file Industry Job Start Date Occupation Not on file Not on file Not on file Travel End Travel History Travel Start No recent travel history available. Last Filed Vital Signs Not on file Plan of Treatment Health Maintenance Due Date Last Done Comments CERVICAL CANCER SCREENING 2002 INFLUENZA VACCINE 03/11/2019 05/25/2018, 06/12/2014 Results Not on fileafter 04/09/2018 Insurance Type Payer Benefit Subscriber ID Effective Phone Address Plan / Dates Group HMO/PPO [employer] xxxxxxxxx 2016-P THCARE resent CHOICE/CHO ICE + Advance Directives For more information, please contact: [phone] Patient Time Cycle Operator Explanation Type Date Recorded Advance Directives, 11/30/2016 7:59 AM Living Will and Medical Power of Precision Machine Operator
--- OUTSIDE RECORDS SUMMARY | 2019-04-10 14:20 | XMS REPORT | Summary of Care ---
Author Author [facility] - Health Organization [facility] Address Unknown Phone Unavailable Care Team Providers Care Shelter Monitor Name Role Phone Pcp, Patient Does Not Have A PCP Reason for Referral * (SIDDHARTHA) Referred By Contact Referred To Contact Status Reason Specialty Diagnoses / Procedures Gay Hatch DO [address] [place] [phone] New Request IM-GASTROENTEROL Diagnoses OGY Epigastric pain P rocedures Discharge Follow-Up: Specialty Service IM-GASTROENTEROLOG Y; 1 Week * MRI/CAT Scan (STAT) Referred By Contact Referred To Contact Status Reason Specialty Diagnoses / Procedures Gay Hatch DO [address] [place] [phone] New Request Diagnostic Diagnoses Radiology Epigastric pain P rocedures CT ABDOMEN PELVIS W CONTRAST * MRI/CAT Scan (STAT) Referred By Contact Referred To Contact Status Reason Specialty Diagnoses / Procedures Gay Hatch [address] [phone] New Request Diagnostic Diagnoses Radiology Epigastric pain P rocedures CT ABDOMEN PELVIS W CONTRAST Reason for Visit * Reason Comments Epigastric Pain * Auth/Cert Referred By Contact Referred To Contact Status Reason Specialty Diagnoses / Procedures [facility] Emergency Dept [address] [place] [address] Emergency Medicine Encounter Details Care Team Description Date Type Department Gay Hatch DO [address] [place] [phone] Epigastric pain (Primary Dx) 03/16/2019 Emergency [facility] [address] [place] [address] Allergies Comments Active Allergy Reactions Severity Noted Date Cephalexin Swelling Medium 03/16/2019 Omeprazole Swelling Medium 03/16/2019 Sulfa (Sulfonamide Swelling 03/16/2019 Antibiotics) documented as of this encounter (statuses as of 03/16/2019) Medications End Date Status Medication Sig Dispensed Refills Start Date Active metoclopramide HCl 10 mg Take 1 tablet 20 tablet 0 tabletIndications: by mouth 9 Epigastric pain every 6 (six) hours as needed for Nausea and Vomiting (N/V). Active metroNIDAZOLE 500 mg Take 1 tablet 14 tablet 0 tabletIndications: by mouth 2 9 Epigastric pain (two) times daily. documented as of this encounter (statuses as of 03/16/2019) Active Problems Not on filedocumented as of this encounter (statuses as of 03/16/2019) Social History Date Tobacco Use Types Packs/Day Years Used Never Assessed Sex Assigned at Date Recorded Not on file Industry Job Start Date Occupation Not on file Not on file Not on file Travel End Travel History Travel Start No recent travel history available. documented as of this encounter Last Filed Vital Signs Reading Time Taken Comments Vital Sign 120/88 03/16/2019 7:50 AM CDT Blood Pressure 89 03/16/2019 7:50 AM CDT Pulse 36.6 C (97.9 F) 03/16/2019 7:50 AM CDT Temperature 18 03/16/2019 7:50 AM CDT Respiratory Rate 100% 03/16/2019 7:50 AM CDT Oxygen Saturation - - Inhaled Oxygen Concentration 75.3 kg (166 lb) 03/16/2019 3:23 AM CDT Weight 157.5 cm (5' 2") 03/16/2019 3:23 AM CDT Height 30.36 03/16/2019 3:23 AM CDT Body Mass Index documented in this encounter Discharge Instructions * Attachments The following attachments cannot be sent through Care Everywhere.* Abdominal Pain, Unknown Cause, (Female) (Citizen Of [place]) documented in this encounter Plan of Treatment Date/Time Name Type Priority Associated Diagnoses 03/16/2019 5:[address] ABDOMEN PELVIS W IMAGING STAT Epigastric pain CONTRAST Health Maintenance Due Date Last Done Comments VARICELLA VACCINES (1 of 1994 2 - 13+ 2-dose series) DTaP,Tdap,and Td Vaccines 2000 (1 - Tdap) PAP SMEAR 2002 INFLUENZA VACCINE 04/11/2019 PNEUMOCOCCAL 0-64 YEARS Aged Out No longer eligible based COMBINED SERIES on patient's age to complete this topic documented as of this encounter Procedures Comments Procedure Name Priority Date/Time Associated Diagnosis CT ABDOMEN PELVIS W STAT 03/16/2019 Epigastric pain CONTRAST 5:56 AM CDT Procedure Note - [facility], Radiant Results Inft User - 03/16/2019 6:47 AM CDT * * * * * * * * ORIGINAL REPORT * * * * * * * * EXAM: CT ABDOMEN AND PELVIS WITH CONTRAST HISTORY: Abd pain, fever, abscess suspected Abd pain, acute, generalize d h/o rectal infection, IBS, concern for worsening COMPARISO N: None. DOSE: 618.62 mGy-cm TECHNIQUE AND FINDINGS: Contiguous axial imaging from the level of the lung bases through the pubic symphysis was performed after the uncomplica cate administra tion of 120 cc of intravenou s Omnipaque contrast. Coronal and sagittal reconstruc tions were obtained. Auto mA and/or iterative reconstruc tion were used to reduce radiation dose. FINDINGS: LOWER THORAX: Mild dependent atelectasi s of the lung bases are seen. No cardiomega ly. LIVER: No focal hepatic lesions. Normal contour. GALLBLADD ER AND BILIARY TREE: No biliary ductal dilation. No gallbladde r wall thickening . PANCREAS: No ductal dilation or masses. SPLEEN: Numerous low attenuated splenic lesions are identified . ADRENAL GLANDS: No adrenal nodules. KIDNEYS: No hydronephr osis, stones, or masses. PERITONEU M AND RETROPERIT ONEUM: No free air or fluid. LYMPH NODES: No lymphadeno prerna. VESSELS: Unremarkab le. GI TRACT: The gastrointe stinal tract, including the appendix is within normal limits. PELVIS/BL ADDER: A 4.8 x 3.4 cm cystic structure is noted in associatio n with the right adnexa (3:85), potentiall y reflect an ovarian cyst. Small amount of fluid is noted within the uterine cavity. Scattered low attenuated lesions are seen within the cervix, potentiall y reflecting nabothian cysts. BONES AND SOFT TISSUES: No suspicious lytic or sclerotic bony lesions. IMPRESSIO N Multiple low attenuated splenic lesions, potentiall y reflecting cysts. Infectious /inflammat ory process is also a considerat ion. Distended gallbladde r without pericholec ystic fluid or wall thickening . CBC WITH DIFFERENTIAL STAT 03/16/2019 Epigastric pain 4:33 AM CDT CBC WITH DIFF Routine 03/16/2019 Epigastric pain 4:33 AM CDT COMP. METABOLIC PANEL STAT 03/16/2019 Epigastric pain (16150) 4:33 AM CDT TROPONIN I STAT 03/16/2019 Epigastric pain 4:33 AM CDT LIPASE STAT 03/16/2019 Epigastric pain 4:33 AM CDT CONSENT/REFUSAL FOR Routine 03/16/2019 DIAGNOSIS AND TREATMENT 3:15 AM CDT documented in this encounter Results * CBC WITH DIFFERENTIAL (03/16/2019 4:33 AM CDT) WBC 11.06 4.30 - 11.10 [facility] 10*3/L [facility] RBC 4.52 3.93 - 5.25 10*6/L [facility] HGB 12.3 11.6 - 15.0 g/dL [facility] HCT 38.4 35.7 - 45.2 % [facility] MCV 85.0 80.6 - 95.5 fL [facility] MCH 27.2 25.9 - 32.8 pg [facility] MCHC 32.0 31.6 - 35.1 g/dL [facility] RDW-SD 41.4 39.0 - 49.9 fL [facility] RDW-CV 13.2 12.0 - 15.5 % [facility] PLT 258 166 - 358 10*3/L [facility] MPV 11.6 9.5 - 12.9 fL [facility] NR[facility]100 WBC 0.0 0.0 - 10.0 /100 WBCs [facility] NRBC x10^3 <0.01 10*3/L [facility] GRAN MAT (NEUT) 76.8 % [facility] % [facility] IMM GRAN % 0.20 % [facility] LYMPH % 16.3 % [facility] MONO % 5.2 % [facility] EOS % 1.1 % [facility] BASO % 0.4 % [facility] GRAN MAT 8.51 (H) 1.88 - 7.09 10*3/uL [facility] x10^3(ANC) [facility] IMM GRAN x10^3 <0.03 0.00 - 0.06 10*3/uL [facility] LYMPH x10^3 1.80 1.32 - 3.29 10*3/uL [facility] MONO x10^3 0.57 0.33 - 0.92 10*3/uL [facility] EOS x10^3 0.12 0.03 - 0.39 10*3/uL [facility] BASO x10^3 0.04 0.01 - 0.07 10*3/uL [facility] Specimen Blood - ARM, LEFT Performing Organization Address City/[facility]/Zipcode Phone Number [facility] CLIA: [id number], [address] [place], [place] [id number] [facility] * LIPASE (03/16/2019 4:33 AM CDT) LIPASE 100 0 - 220 U/L [facility] Specimen Blood - ARM, LEFT Performing Organization Address City/[facility]/Zipcode Phone Number [facility] CLIA: [id number], [facility] [place], [place] [address] [facility] * TROPONIN I (03/16/2019 4:33 AM CDT) TROPONIN I 0.001 <=0.034 ng/mL [facility] Specimen Blood - ARM, LEFT Narrative Performed At Equal or Less than 0.034 ng/ml---Normal [facility] Note: Cardiac troponin begins to rise 3-4 hours after the onset of ischemia. [facility] Repeat in 4-6 hours if the sample was drawn within 3-4 hours of the onset of the [facility] symptom and found normal. Between 0.035 and 0.120 ng/mL--- Borderline. Questionable myocardial injury or necrosis Note: Serial measurement may be necessary to confirm or exclude the diagnosis of myocardial injury or necrosis; Clinical correlation (symptoms, EKGs, imaging studies, and others) required; Repeat in 4-6 hours if clinically indicated. Equal or Higher than 0.121 ng/mL---Abnormal. Myocardial Injury or Necrosis Likely Biotin has been reported to cause a negative bias, interpret results relative to patient's use of biotin. Performing Organization Address City/State/Zipcode Phone Number [facility] CLIA: [id number], [address] [place] [address] [facility] * COMP. METABOLIC PANEL (57370) (03/16/2019 4:33 AM CDT) NA 141 135 - 145 mmol/L [facility] K 3.9 3.5 - 5.0 mmol/L [facility] CL 107 98 - 108 mmol/L [facility] CO2 TOTAL 24 23 - 31 mmol/L [facility] AGAP 10 2 - 16 [facility] BUN 8 7 - 23 mg/dL [facility] GLUCOSE 106 70 - 110 mg/dL [facility] CREATININE 0.56 0.50 - 1.04 mg/dL [facility] TOTAL BILI 0.3 0.1 - 1.1 mg/dL [facility] CALCIUM 9.2 8.6 - 10.6 mg/dL [facility] T PROTEIN 7.4 6.3 - 8.2 g/dL [facility] ALBUMIN 4.0 3.5 - 5.0 g/dL [facility] ALK PHOS 78 34 - 122 U/L [facility] ALT(SGPT) 41 9 - 51 U/L [facility] AST(SGOT) 44 (H) 13 - 40 U/L [facility] eGFR 121.8 mL/min/1.73m2 [facility] Calculation [facility] (Non-[facility] Portuguese) eGFR 147.6 mL/min/1.73m2 [facility] Calculation [facility] ([facility] Portuguese) Specimen Blood - ARM, LEFT Narrative Performed At Association of Glomerular Filtration Rate (GFR) and Staging of Kidney Disease* [facility] + + + + [facility] | GFR (mL/min/1.73 m2)| With Kidney Damage|Without Kidney Damage CAMPUS + + + + |>90|Stage one| Normal + + + + |60-89|Stage two| Decreased GFR + + + + |30-59|Stage three| Stage three + + + + |15-29|Stage four | Stage four + + + + |<15 (or dialysis)|Stage five | Stage five + + + + *Each stage assumes the associated GFR level has been in effect for at least three months.Stages 1 to 5, with or without kidney disease, indicate chronic kidney disease. Notes: Determination of stages one and two (with eGFR >59mL/min/1.73 m2) requires estimation of kidney damage for at least three months as defined by structural or functional abnormalities of the kidney, manifested by either: Pathological abnormalities or Markers of kidney damage (including abnormalities in the composition of the blood or urine or abnormalities in imaging tests). Performing Organization Address City/State/Zipcode Phone Number [facility] CLIA: [id number], [address] [place], [place] [address] [facility] documented in this encounter Visit Diagnoses Diagnosis Epigastric pain - Primary Abdominal pain, epigastric documented in this encounter Administered Medications Action Date Dose Rate Site Medication Order MAR Action 03/16/2019 4:37 AM CDT 0.4 mg atropine injection 0.4 mg Given 0.4 mg, IV Push, ONCE, 1 dose, 03/16/19 at 0515, STAT 03/16/2019 5:56 AM CDT 100 mL iohexol (OMNIPAQUE 350 BULK-100 mL) Given injection 100 mL 100 mL, Intravenous, ONCE, 1 dose, 03/16/19 at 0615, Routine 03/16/2019 4:51 AM CDT 25 mg proMETHazine (PHENERGAN) 25 mg in NaCl Given 0.9% (NS) 50 mL piggyback 25 mg, IV Piggyback, ONCE, 1 dose, Tu03/16/19 at 0545, 50 mL documented in this encounter Insurance Type Payer Benefit Subscriber ID Effective Phone Address Plan / Dates Group HMO/PPO/POS [facility] [id number] documented [facility] of this encounter
--- OUTSIDE RECORDS SUMMARY | 2019-04-10 14:20 | XMS REPORT | Clinical Summary ---
Author Author [facility]YANA [facility] Address Unknown Phone Unavailable Care Team Providers Care Acetylene Torch Operator Name Role Phone PCP Unavailable Allergies Comments Active Allergy Reactions Severity Noted Date Acyclovir Analogues Swelling 12/17/2018 Sulfamethoxazole-Trimetho Hives, 12/17/2018 prim Swelling Cephalexin Hives, 12/17/2018 Itching, Swelling Omeprazole Itching, Low 12/17/2018 Swelling, Rash Medications End Date Status Medication Sig Dispensed Refills Start Date Active dicyclomine (BENTYL) 10 Take 10 mg by 0 MG capsule mouth 4 (four) times daily before meals and nightly. 03/04/2019 Discontinued polyethylene glycol Take 17 g by 0 (GLYCOLAX) 17 gram packet mouth 2 (two) times daily. 03/14/2019 doxycycline (VIBRAMYCIN) Take 1 20 capsule 0 100 MG capsule capsule (100 9 mg total) by mouth 2 (two) times daily for 10 days. 03/14/2019 acetaminophen-codeine Take 1-2 15 tablet 0 (TYLENOL #3) 300-30 mg tablets by 9 per tablet mouth every 6 (six) hours as needed for Pain for up to 10 days. Max Daily Amount: 8 tablets 03/11/2019 ondansetron (ZOFRAN) 4 MG Take 1 tablet 14 tablet 0 tablet (4 mg total) 9 by mouth 3 (three) times daily as needed for Nausea for up to 7 days ODT please. Active Problems Not on file Encounters Care Team Description Date Type Specialty Madi Hurtado Jr., MD Lower abdominal pain (Primary Dx); Proctitis; Cyst of right ovary 03/04/2019 Emergency Emergency Medicine Resource, [facility] P[facility]mit Phone 02/25/2019 Hospital Pre-Admission Testing Encounter Laurence Charles MD 1, [facility] Abdominal bloating 01/29/2019 Hospital Ultrasound Encounter Laurence Charles MD Abdominal bloating (Primary Dx) 01/27/2019 Outside Orders Central Scheduling Taco Rogers MD 12/18/2018 Anesthesia Event Laurence Charles MD UPPER ENDOSCOPY,BIOPSY 12/18/2018 Surgery Laurence Charles MD 12/18/2018 Hospital Encounter Resource, [facility] Preadmit Phone 12/17/2018 Hospital Pre-Admission Testing Encounter after 04/09/2018 Social History Date Tobacco Use Types Packs/Day [...] URINE Routine 12/18/2018 8:29 AM CDT after 04/09/2018 Results * US pelvis with endovag with doppler (03/04/2019 10:24 AM CDT) Specimen Narrative Performed At FINAL REPORT [employer] Pelvic ultrasound History: pelvic pain Comparison: CT [...] MD Report Verified Date/Time:03/04/2019 13:00:47 Reading Location: [facility] Diagnostic Imaging Reading Room - [place] [address] Procedure Note Interface, External Ris In - [...] Report Verified Date/Time: 03/04/2019 13:00:47 Reading Location: [facility] Diagnostic Imaging Reading Room - [place] [address] Performing Organization Address City/State/Zipcode Phone Number [facility] * CT abdomen pelvis with IV contrast (03/04/2019 6:39 AM CDT) Specimen Narrative Performed At FINAL REPORT [facility] EXAM: CT of the abdomen and pelvis, [...] POC Yes UPT Cassette Lot #, POC [id number] UPT Cassette Expiration 04/10/2020 Date, POC Specimen Urine * Urinalysis with Microscopic If Indicated (03/04/2019 5:13 AM CDT) Color, UA Colorless [facility] Clarity, UA Clear [facility] Specific Ponder[place], UA 1.002 1.001 - 1.035 [facility] pH, UA 5.5 5.0 - 8.0 [facility] Protein, UA Negative Negative [facility] Glucose, UA Negative Negative [facility] Ketones, UA Negative Negative [facility] Bilirubin, UA Negative Negative [facility] Blood, UA Negative Negative [facility] Nitrite, UA Negative Negative [facility] Leukocytes, UA Negative Negative [facility] Urobilinogen, UA 0.2 0.2 - 1.0 mg/dL [facility] Specimen Source [facility] Specimen Urine Performing Organization Address City/State/Zipcode Phone Number [facility] [address] [place] [address] [facility] * CBC with platelet count + automated diff (03/04/2019 5:13 AM CDT) WBC 10.0 3.5 - 10.5 K/L [facility] RBC 4.30 3.93 - 5.22 M/L [facility] Hemoglobin 11.9 11.2 - 15.7 GM/DL [facility] Hematocrit 37.2 34.1 - 44.9 % [facility] MCV 86.5 79.4 - 94.8 fL [facility] MCH 27.7 25.6 - 32.2 pg [facility] MCHC 32.0 (L) 32.2 - 35.5 GM/DL [facility] RDW 13.5 11.7 - 14.4 % [facility] Platelets 242 150 - 450 K/CU MM [facility] MPV 10.8 9.4 - 12.3 fL [facility] nRBC 0 0 - 0 /100 WBC [facility] % Neutros 58 % [facility] % Lymphs 31 % [facility] % Monos 8 % [facility] % Eos 2 % [facility] % Baso 0 % [facility] # Neutros 5.78 1.56 - 6.13 K/L [facility] # Lymphs 3.13 1.18 - 3.74 K/L [facility] # Monos 0.78 (H) 0.24 - 0.36 K/L [facility] # Eos 0.21 0.04 - 0.36 K/L [facility] # Baso 0.03 0.01 - 0.08 K/L [facility] Immature 0 0 - 1 % [facility] Granulocytes-[facility] Specimen Blood Performing Organization Address City/State/Zipcode Phone Number [address] * Lipase (03/04/2019 5:13 AM CDT) Lipase 40 8 - 78 U/L [facility] Specimen Blood Performing Organization Address City/[facility]/Zipcode Phone Number [address] * Hepatic function panel (03/04/2019 5:13 AM CDT) Protein, Total 7.4 6.0 - 8.3 gm/dL [facility] Albumin 4.0 3.5 - 5.0 g/dL [facility] Total Bilirubin 0.3 0.2 - 1.2 mg/dL [facility] Bilirubin, Direct 0.1 0.1 - 0.5 mg/dL [facility] Alkaline Phosphatase 73 40 - 150 U/L [facility] AST 24 5 - 34 U/L [facility] ALT 27 6 - 55 U/L [facility] Specimen Blood Performing Organization Address City/[facility]/Zipcode Phone Number [facility] [address] [place], [place] [id number] [facility] * Basic Metabolic Panel (03/04/2019 5:13 AM CDT) Sodium 138 136 - 145 meq/L [facility] Potassium 3.7 3.5 - 5.1 meq/L [facility] Chloride 108 (H) 98 - 107 meq/L [facility] CO2 24 22 - 29 meq/L [facility] BUN 8 7 - 21 mg/dL [facility] Creatinine 0.70 0.57 - 1.25 mg/dL [facility] Glucose 91 70 - 105 mg/dL [facility] Calcium 9.1 8.4 - 10.2 mg/dL [facility] EGFR 94Comment: ESTIMATED GFR IS mL/min/1.73 sq m [facility] NOT ACCURATE CREATININE [facility] CLEARANCE IN PREDICTING GLOMERULAR FILTRATION RATE. ESTIMATED GFR IS NOT APPLICABLE FOR DIALYSIS PATIENTS. Specimen Blood Performing Organization Address City/[facility]/Zipcode Phone Number [facility] [address] [place] [address] [facility] * US Abdomen Complete (01/29/2019 9:00 AM CDT) Specimen Narrative Performed At FINAL REPORT [employer] EXAM: Complete Abdominal Ultrasound INDICATION:abdominal bloating COMPARISON: [...] MD Report Verified Date/Time:01/29/2019 09:42:56 Reading Location: [facility] Reading Room [address] [place] [address] Procedure Note Interface, External Ris In - [...] Report Verified Date/Time: 01/29/2019 09:42:56 Reading Location: [facility] Reading Room [address] [place] [address] Performing Organization Address City/State/Zipcode Phone Number [facility] * REPORT OF PROCEDURE - ENDOSCOPY URL (12/18/2018 9:04 AM CDT) Narrative Performed At * Tissue Exam (12/18/2018 8:56 AM CDT) Case Report Surgical Pathology [facility] Report [facility] Case: [id number] Authorizing Provider:Laurence Charles MDCollected: 12/18/2018 0856 Ordering Location: [facility] ENDOSCOPY Received: 12/18/2018 1102 SERVICES Pathologist: Lolis Rivers MD Specimen:Stomach, bx r/o H Pyroi DIAGNOSIS STOMACH, BIOPSY: [facility] - CHRONIC INACTIVE [facility] GASTRITIS LC/pl Signing Pathologist Direct Phone Line: [phone] COMMENT The endoscopy report is [facility] reviewed in conjunction with [facility] the case. CPT Code(s) 36230 [facility] [address] [facility] GROSS DESCRIPTION The specimen is received in a [facility] single part labeled with the [facility] patient's name, date of and accession which match the information provided on the requisition slip. Part A: Received in formalin in a container labeled "stomach biopsy, rule out H. Pylori" are three pieces of rijoas-pink tissue measuring 0.4 x 0.3 x 0.2 cm, 0.2 x 0.2 x 0.2 cm, 0.2 x 0.2 x 0.2 cm. They are submitted entirely in cassette A1 following filtration. EC/pl MICROSCOPIC DESCRIPTION Sections of the stomach biopsy [facility] show gastric antral and [facility] oxyntic type mucosa. There is increased chronic inflammation in the lamina propria with lymphocytes, plasma cells and few lymphoid aggregates. Mild vascular congestion is present. There is no significant acute inflammation. There is no intestinal metaplasia, dysplasia or malignancy. Warthin-starry stains for Helicobacter pylori is negative. SPECIAL STUDIES Warthin-starry stain - [facility] negative for Helicobacter [facility] pylori. The interpretation of this case included the use of immunohistochemistry or special stains. Control Slides Examined: In-house known positive controls were evaluated along with the test tissue. These control slides run alongside of the patients sample show appropriate staining. Internal positive and negative controls when available are evaluated Immunohistochemistry technical testing was performed at [facility], Pathology Laboratory where it was developed and [...] Tissue Performing Organization Address City/State/Zipcode Phone Number [facility] [address] [place] [address] [facility] after 04/09/2018 Insurance Payer Benefit Subscriber ID Type Phone Address Plan / Group [facility] H[facility]/POS CARE POS SELECT CHOICE
[2019-04-10 17:55] VITALS: BP 118/91
--- NOTE | 2019-04-10 18:59 | Operative Report ---
DATE OF PROCEDURE: 04/10/2019 SURGEON: Maximiliano Banerjee MD PROCEDURES: EGD with biopsies and a colonoscopy with polypectomy and biopsies. INDICATION FOR EGD: Upper abdominal pain, bloating, nausea. INDICATIONS FOR COLONOSCOPY: Diarrhea, chronic. MEDICATIONS: The patient was done under MAC, please see anesthesiologist's note. PROCEDURE IN DETAIL: With the patient in left lateral decubitus position, a flexible fiberoptic Olympus gastroscope was introduced into the esophagus under direct visualization without any difficulty. There was some patchy erythema noted in the distal esophagus. The scope was then advanced with ease into the stomach. Mucosa overlying the antrum and the body revealed some patchy erythema and [id number]-moderate edema and biopsies were obtained and sent to stain for H. pylori. The pylorus was of normal contour and shape, it was intubated with ease and the scope was advanced all the way to the second portion of the duodenum. Biopsies were obtained from the proximal second portion and duodenal bulb. The scope was then withdrawn back into the stomach and retroflexed mucosa overlying the fundus and cardia appeared to be within normal limits. The scope was then straightened out, the stomach was decompressed, the scope was subsequently withdrawn. The patient tolerated the procedure well. IMPRESSION: 1. Distal esophagitis, mild. 2. Gastritis, biopsied biopsies, sent to stain for H. pylori. 3. Rule out sprue. PLAN: 1. Follow up histology. 2. Initiate Protonix 40 mg one p.o. q.a.m. a.c. PROCEDURE IN DETAIL: The patient was then turned around after adequate lubrication of the anal canal, a flexible fiberoptic Olympus colonoscope was inserted into the rectum with ease and advanced all the way to the cecum. The ileocecal valve was intubated and the scope was advanced into the terminal ileum. Biopsies were obtained. The scope was then withdrawn back into the colon, it was then withdrawn slowly and there was a mild segmental colitis noted in the proximal ascending colon, biopsies were obtained. An approximately 4 mm sessile polyp was also noted in the ascending colon, that was removed per snare electrocautery and site was hemoclipped. The transverse colon grossly appeared to be within normal limits. There was some mild patchy inflammatory changes noted in the left colon, random biopsies were obtained. Two minute polyps were removed per hot biopsy forceps from the rectum, also similar mild inflammatory changes were noted in the rectum, biopsies were obtained. The scope was then retroflexed into the distal rectum and small internal hemorrhoids were noted, none of which were actively bleeding. The scope was then straightened out, it was subsequently withdrawn after securing an adequate stool specimen, that was sent for the appropriate stool studies. The patient tolerated the procedure well. IMPRESSION: 1. Ascending colon polyp, removed per snare electrocautery, site hemoclipped. 2. Mild patchy left-sided colitis. 3. Proctitis, mild. 4. Rectal polyps x2, hot biopsied. 5. Internal hemorrhoids, none actively bleeding. PLAN: 1. Follow up histology. 2. Follow up stool studies. 3. Initiate Bentyl 10 mg one p.o. t.i.d. 4. Visbiome one p.o. b.i.d. 5. Timing of followup colonoscopy pending pathology report. Maximiliano Banerjee MD [facility]LL[facility] /[id number] cc: Dr. Elise Dasilva
[2019-04-10 19:41] LABS: WBC,FECAL (FECAL LACTOFERRIN) NEGATIVE (NEGATIVE)
[2019-04-11 12:57] LABS: C DIFFICILE TOXIN A&B AMP PROB NEGATIVE (NEGATIVE)
--- OUTSIDE RECORDS SUMMARY | 2019-04-13 12:21 | XMS REPORT | Clinical Summary ---
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 Phone Asked, No Pcp PCP Unavailable Allergies No Known Allergies Medications No known medications Active Problems Not on file Encounters Care Team Description Date Type Specialty 05/25/2018 Clinical Corporate Wellness Support after 04/12/2018 Immunizations Name Administration Dates Next Due FLUCELVAX [...] 03/11/2019 05/25/2018, 06/12/2014 Results Not on fileafter 04/12/2018 Insurance Type Payer Benefit Subscriber ID Effective Phone Address Plan / Dates Group HMO/PPO [facility] xxxxxxxxx [id number] THCARE resent CHOICE/CHO ICE + Advance Directives For more information, please contact: [phone] Patient Hospital Personnel Director Explanation Type Date Recorded Advance Directives, 11/30/2016 7:59 AM Living Will and Medical Power of 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
--- OUTSIDE RECORDS SUMMARY | 2019-04-13 12:21 | XMS REPORT | Clinical Summary ---
Author Author AIYANA 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 Name Role Phone PCP Unavailable Allergies Comments [...] right ovary 03/04/2019 Emergency Emergency Medicine Resource, [facility] Preadmit Phone 02/25/2019 Hospital Pre-Admission Testing Encounter Laurence Charles MD 1, [facility] Nacho Us Room Abdominal bloating 01/29/2019 Hospital Ultrasound Encounter Laurence Charles MD Abdominal bloating (Primary Dx) 01/27/2019 Outside Orders Central Scheduling Taco Rogers MD 12/18/2018 Anesthesia Event Laurence Charles MD UPPER ENDOSCOPY,BIOPSY 12/18/2018 Surgery Laurence Charles MD 12/18/2018 Hospital Encounter Resource, [facility] Preadmit Phone 12/17/2018 Hospital Pre-Admission Testing Encounter after 04/12/2018 Social History Date Tobacco Use Types Packs/Day [...] URINE Routine 12/18/2018 8:29 AM CDT after 04/12/2018 Results * US pelvis with endovag with doppler (03/04/2019 10:24 AM CDT) Specimen Narrative Performed At FINAL REPORT AfterShip Pelvic ultrasound History: pelvic pain Comparison: CT [...] MD Report Verified Date/Time:03/04/2019 13:00:47 Reading Location: [facility] Diagnostic Imaging Reading Room - [place] [address] Procedure Note Interface, External Ris In - [...] Report Verified Date/Time: 03/04/2019 13:00:47 Reading Location: [facility] Diagnostic Imaging Reading Room - [place] [address] Performing Organization Address City/State/Zipcode Phone Number [facility] * CT abdomen pelvis with IV contrast (03/04/2019 6:39 AM CDT) Specimen Narrative Performed At FINAL REPORT [facility] EXAM: CT of the abdomen and pelvis, [...] POC Yes UPT Cassette Lot #, POC [id number] UPT Cassette Expiration 04/10/2020 Date, POC Specimen Urine * Urinalysis with Microscopic If Indicated (03/04/2019 5:13 AM CDT) Color, UA Colorless [facility] Clarity, UA Clear [facility] Specific [place], UA 1.002 1.001 - 1.035 [facility] pH, UA 5.5 5.0 - 8.0 [facility] Protein, UA Negative Negative [facility] Glucose, UA Negative Negative [facility] Ketones, UA Negative Negative [facility] Bilirubin, UA Negative Negative [facility] Blood, UA Negative Negative [facility] Nitrite, UA Negative Negative [facility] Leukocytes, UA Negative Negative [facility] Urobilinogen, UA 0.2 0.2 - 1.0 mg/dL [facility] Specimen Source [facility] Specimen Urine Performing Organization Address City/State/Zipcode Phone Number [facility] [address] [place] [address] MEDICAL CENTER * CBC with platelet count + automated diff (03/04/2019 5:13 AM CDT) WBC 10.0 3.5 - 10.5 K/L [facility] RBC 4.30 3.93 - 5.22 M/L [facility] Hemoglobin 11.9 11.2 - 15.7 GM/DL [facility] Hematocrit 37.2 34.1 - 44.9 % [facility] MCV 86.5 79.4 - 94.8 fL [facility] MCH 27.7 25.6 - 32.2 pg [facility] MCHC 32.0 (L) 32.2 - 35.5 GM/DL [facility] RDW 13.5 11.7 - 14.4 % [facility] Platelets 242 150 - 450 K/CU MM [facility] MPV 10.8 9.4 - 12.3 fL [facility] nRBC 0 0 - 0 /100 WBC [facility] % Neutros 58 % [facility] % Lymphs 31 % [facility] % Monos 8 % [facility] % Eos 2 % [facility] % Baso 0 % [facility] # Neutros 5.78 1.56 - 6.13 K/L [facility] # Lymphs 3.13 1.18 - 3.74 K/L [facility] # Monos 0.78 (H) 0.24 - 0.36 K/L [facility] # Eos 0.21 0.04 - 0.36 K/L [facility] # Baso 0.03 0.01 - 0.08 K/L [facility] Immature 0 0 - 1 % [facility] Granulocytes-[facility] Specimen Blood Performing Organization Address City/State/Zipcode Phone Number [address] * Lipase (03/04/2019 5:13 AM CDT) Lipase 40 8 - 78 U/L [facility] Specimen Blood Performing Organization Address City/[facility] [place]/Zipcode Phone Number [address] * Hepatic function panel (03/04/2019 5:13 AM CDT) Protein, Total 7.4 6.0 - 8.3 gm/dL [facility] Albumin 4.0 3.5 - 5.0 g/dL [facility] Total Bilirubin 0.3 0.2 - 1.2 mg/dL [facility] Bilirubin, Direct 0.1 0.1 - 0.5 mg/dL [facility] Alkaline Phosphatase 73 40 - 150 U/L [facility] AST 24 5 - 34 U/L [facility] ALT 27 6 - 55 U/L [facility] Specimen Blood Performing Organization Address City/[facility] [place]/Zipcode Phone Number [facility] [address] [place], [place] [id number] [facility] * Basic Metabolic Panel (03/04/2019 5:13 AM CDT) Sodium 138 136 - 145 meq/L [facility] Potassium 3.7 3.5 - 5.1 meq/L [facility] Chloride 108 (H) 98 - 107 meq/L [facility] CO2 24 22 - 29 meq/L [facility] BUN 8 7 - 21 mg/dL [facility] Creatinine 0.70 0.57 - 1.25 mg/dL [facility] Glucose 91 70 - 105 mg/dL [facility] Calcium 9.1 8.4 - 10.2 mg/dL [facility] EGFR 94Comment: ESTIMATED GFR IS mL/min/1.73 sq m [facility] NOT ACCURATE CREATININE [facility] CLEARANCE IN PREDICTING GLOMERULAR FILTRATION RATE. ESTIMATED GFR IS NOT APPLICABLE FOR DIALYSIS PATIENTS. Specimen Blood Performing Organization Address City/[facility] [place]/Zipcode Phone Number [facility] [address] [place] [address] [facility] * US Abdomen Complete (01/29/2019 9:00 AM CDT) Specimen Narrative Performed At FINAL REPORT AfterShip EXAM: Complete Abdominal Ultrasound INDICATION:abdominal bloating COMPARISON: [...] MD Report Verified Date/Time:01/29/2019 09:42:56 Reading Location: [facility] Reading Room [address] [place] [address] Procedure Note Interface, External Ris In - [...] Report Verified Date/Time: 01/29/2019 09:42:56 Reading Location: [place] [facility] Reading Room [address] [place] [address] Performing Organization Address City/State/Zipcode Phone Number [facility] * REPORT OF PROCEDURE - ENDOSCOPY URL (12/18/2018 9:04 AM CDT) Narrative Performed At * Tissue Exam (12/18/2018 8:56 AM CDT) Case Report Surgical Pathology [facility] Report [facility] Case: [id number] Authorizing Provider:Laurence Charles MDCollected: 12/18/2018 0856 Ordering Location: [facility] ENDOSCOPY Received: 12/18/2018 1102 SERVICES Pathologist: Lolis Rivers MD Specimen:Stomach, bx r/o H Pyroi DIAGNOSIS STOMACH, BIOPSY: [facility] - CHRONIC INACTIVE [facility] GASTRITIS LC/pl Signing Pathologist Direct Phone Line: [phone] COMMENT The endoscopy report is [facility] reviewed in conjunction with [facility] the case. CPT Code(s) 28194 [facility] [id number] [facility] GROSS DESCRIPTION The specimen is received in a [facility] single part labeled with the [facility] patient's name, date of and accession which [...] MICROSCOPIC DESCRIPTION Sections of the stomach biopsy [facility] show gastric antral and [facility] oxyntic type mucosa. There is increased chronic inflammation in the lamina propria with lymphocytes, plasma cells and few lymphoid aggregates. Mild vascular congestion is present. There is no significant acute inflammation. There is no intestinal metaplasia, dysplasia or malignancy. Warthin-starry stains for Helicobacter pylori is negative. SPECIAL STUDIES Warthin-starry stain - [facility] negative for Helicobacter [facility] pylori. The interpretation of this case included the use of immunohistochemistry or special stains. Control Slides Examined: In-house known positive controls were evaluated along with the test tissue. These control slides run alongside of the patients sample show appropriate staining. Internal positive and negative controls when available are evaluated Immunohistochemistry technical testing was performed at [facility], Pathology Laboratory where it was developed [...] Tissue Performing Organization Address City/State/Zipcode Phone Number [facility] [address] [place] [address] [facility] CENTER after 04/12/2018 Insurance Payer Benefit Subscriber ID Type Phone Address Plan / Group [facility] H[facility]/POS CARE POS SELECT CHOICE
== END | disposition home or self-care (01) ==
LOC: OR 01:15
PROVIDERS: ATTEND Internal Medicine Gastroenterology
DX: K29.50 Unspecified chronic gastritis without bleeding (principal); K63.5 Polyp of colon; K62.1 Rectal polyp; K51.50 Left sided colitis without complications; K20.9 Esophagitis, unspecified; K59.00 Constipation, unspecified; K62.89 Other specified diseases of anus and rectum; K64.8 Other hemorrhoids; K21.9 Gastro-esophageal reflux disease without esophagitis; K80.20 Calculus of gallbladder without cholecystitis without obstruction; Z88.1 Allergy status to other antibiotic agents; Z88.8 Allergy status to other drugs, medicaments and biological substances; Z68.30 Body mass index [BMI] 30.0-30.9, adult
CPT/HCPCS: 43239; 45380; 45384; 45385; 81025; 83630; 83993; 87045; 87177; 87328; 87493; J2250; J2704; J3010; S0164; 45378